=== PATIENT | male | born 1980 | race Caucasian/White ===

== ENCOUNTER 2024-01-17 11:45 | Emergency (ER) | payer OTHER, SELFPAY ==
[2024-01-17 11:58] VITALS: BP 141/82; PULSE 84; RESP 18; TEMP 36.9; O2SAT 95; BMI 38.4
--- NOTE | 2024-01-17 12:24 | CRLHL7_ITS ---
For Patients: As a result of the Century Cures Act, medical imaging exams and procedure reports are released immediately into your electronic medical record. You may view this report before your referring provider. If you have questions, please contact your health care provider. INDICATION: Cough. TECHNIQUE: Chest 2 views. COMPARISON: None. FINDINGS: Cardiovascular and mediastinum: Heart size and vasculature are normal in caliber and appearance. Lungs and pleural spaces: Left perihilar infiltrate. No sign of pleural effusion. No pneumothorax. Bones and soft tissues: No significant findings. IMPRESSION: Left perihilar infiltrate, possibly pneumonia in the appropriate clinical setting. Recommend short-term follow-up two-view radiographs after treatment to evaluate for resolution. Dictated by Donald Shaver MD @ 01/17/2024 12:57:50 PM (Electronically Signed)
[2024-01-17] MEDS: IPRAT-ALBUT 0.5-2.5 MG/3 ML NEB 1 NEB IH (12:28)
--- OUTSIDE RECORDS SUMMARY | 2024-01-17 13:04 | XMS_ITS ---
Author Organization [facility] Address [address] [place] [address] Care Team Providers Care Supervisor Hot Dip Tinning Name Role Phone Unavailable Unavailable Unavailable Surgery Details Not on file Complications Check Surgery Details section. Procedure Estimated Blood Loss Check Surgery Details section. Procedure Findings Check Surgery Details section. Procedure Specimens Taken Check Surgery Details section.
--- OUTSIDE RECORDS SUMMARY | 2024-01-17 13:04 | XMS_ITS | Clinical Summary ---
Author Organization [facility] Address [address] [place] [address] Care Team Providers Care Radio Repairer Domestic Name Role Phone None Reported, Pcp Primary Care Provider Unavail able Source Comments Patient records contain information from all sites at [facility]. For routine questions regarding patient records, call [phone] during business hours, M-F 8:00 AM - 5:00 PM Central Time. Record requests for emergency care only can be directed to [phone] at any time.[facility] Allergies Active Allergy Reactions Criticality Noted Date Comments Feathers Other (see comments) 03/18/2023 down Medications No known medications Social History Tobacco Use Types Packs/Day Years Used Date Smoking Tobacco: Never Passive Smoke Exposure: Never Smokeless Tobacco: Never [facility] Utilities Answer Date Recorded In the past 12 months has th e electric, gas, oil, or water company threatened to shut off services in your home? No 03/18/2023 Exercise Vital Sign Answer Date Recorde d On average, how many days pe r week do you engage in moderate to strenuous exercise (like a brisk walk)? 3 days 03/18/2023 On average, how many minutes do you engage in exercise at this level? 20 min 03/18/2023 Hunger Vital Sign Answer Date Recorded Within the past 12 months, y ou worried that your food would run out before you got the money to buy more. Never true 03/18/20 23 Within the past 12 months, t he food you bought just didn't last and you didn't have money to get more. Never true 03/18/2023 PRAPARE - Transportation Answer Date Re corded In the past 12 months, has l ack of transportation kept you from medical appointments or from getting medications? No 02/26 In the past 12 months, has l ack of transportation kept you from meetings, work, or from getting things needed for daily living? No 03/18/2023 Nutrition Answer Date Recorded Nutrition: EVOO Fat Source Unknown 03/18 On average, how many serving s of fruits and vegetables do you eat per day (serving size is equal to 1 cup or approximately the size of a tennis ball)? 3-5 03/18/2023 Dental Answer Date Recorded Dental: Regular Dentist Yes 03/18/20 Employment Answer Date Recorded Employment status Employed and actively working without restrictions 03/18/2023 Housing Stability Answer Date Recorded What is your living situation today? I have a [facility] place to live 03/18/2023 Sex and Gender Information Value Date Recorded Sex Assigned at Male 03/18/2023 9:10 AM EXECUTIVE DIRECTOR Legal Sex Male 7:48 AM CDT Gender Identity Male 03/18/2023 9:10 AM EXECUTIVE DIRECTOR Sexual Orientation Straight 03/18/2023 9: 10 AM EXECUTIVE DIRECTOR Last Filed Vital Signs Vital Sign Reading Time Taken Comments Blood Pressure 140/83 03/22/2023 1:03 PM EXECUTIVE DIRECTOR Pulse - - Temperature - - Respiratory Rate - - Oxygen Saturation - - Inhaled Oxygen Concentration - - Weight - - Height - - Body Mass Index - - Plan of Treatment Health Maintenance Due Date Last Done Comments HIV Screening 1980 Hepatitis C Screening 1980 DTaP,Tdap,and Td Vaccines (1 - Tdap) 2000 Hepatitis B Vaccines (1 of 3 - 19+ 3-dose series) 2000 Depression Screening (Annual PHQ-2) 03/28/2023 COVID-19 Vaccine (4 - 2023-2 5 season) 2023 04/17/2021, 07/31/2020, 07/08/2020 Influenza Vaccine (#1) 2023 Lipid (Cholesterol) Screening 03/22/2028 03/22/2023 HPV Vaccines Aged Out No longer eligi ble based on patient's age to complete this topic Pneumococcal vaccine (0-64 years) Aged Out No longer eligible b ased on patient's age to complete this topic Procedures Procedure Name Priority Date/Time Associated Diagnosis Comments LIPID PANEL, S Routine 03/22/2023 9:09 AM EXECUTIVE DIRECTOR Family History Heart Disease from Last 3 Months or Most Recently Relevant to Health Maintenance Results * (ABNORMAL) Lipid Panel (03/22/2023 9:09 AM EXECUTIVE DIRECTOR) Triglycerides 95 mg/dL 03/22/2023 12:42 PM EXECUTIVE DIRECTOR DTL Comment: ----REFERENCE VALUE---- Normal: <150 mg/dL Borderline High: 150-199 mg/dL High: 200-499 mg/dL Very High: > or =500 mg/dL Cholesterol, Total 167 mg/dL 2022 12:42 PM EXECUTIVE DIRECTOR DTL Comment: ----REFERENCE VALUE---- Desirable: < 200 mg/dL Borderline High: 200 - 239 mg/dL High: > or = 240 mg/dL Cholesterol, LDL, Calculated 110 mg/dL 03/22/2023 12:42 PM EXECUTIVE DIRECTOR DTL Comment: ----REFERENCE VALUE---- Desirable: <100 mg/dL Above Desirable: 100-129 mg/dL Borderline High: 130-159 mg/dL High: 160-189 mg/dL Very High: >=190 mg/dL ----ADDITIONAL INFORMATION---- LDL cholesterol calculated using the English/NIH equation. Cholesterol, HDL, S 39(L) >=40 mg/dL 03/22/2023 12:42 PM EXECUTIVE DIRECTOR DTL Cholesterol, Non-HDL, Calculated 128 mg/dL 03/22/2023 12:42 PM EXECUTIVE DIRECTOR DTL Comment: ----REFERENCE VALUE---- Desirable: <130 mg/dL Above Desirable: 130-159 mg/dL Borderline High: 160-189 mg/dL High: 190-219 mg/dL Very High: > or =220 mg/dL Fasting (8 HR or more) Unknown 03/22/2023 12:05 PM EXECUTIVE DIRECTOR DTL Blood (Blood, Venous) 03/22/2023 9:09 AM EXECUTIVE DIRECTOR 03/22/2023 12:06 PM EXECUTIVE DIRECTOR us Bassem Mcelroy M.D. LAB BLOOD ADD-ON Final Res ult [facility] [address] [place] [address], [place] DTL [facility] [address] [place] [address] from Last 3 Months or Most Recently Relevant to Health Maintenance Insurance [facility] Care Teams Radio Repairer Domestic Relationship Specialty Start Date End Date None Reported, Pcp PCP - General Family Medicine 03/18/23
--- OUTSIDE RECORDS SUMMARY | 2024-01-17 13:04 | XMS_ITS | Referral Summary ---
Author Organization [facility] Address [address] [place] [address] Care Team Providers Care Streetcar Repairer Name Role Phone None Reported, Pcp Primary Care Provider Unavail able Source Comments Patient records contain information from all sites at [facility]. For routine questions regarding patient records, call [phone] during business hours, M-F 8:00 AM - 5:00 PM Central Time. Record requests for emergency care only can be directed to [phone] at any time.[facility] Allergies Active Allergy Reactions Criticality Noted Date Comments Feathers Other (see comments) 03/18/2023 down Medications No known medications Social History Tobacco Use Types Packs/Day Years Used Date Smoking Tobacco: Never Passive Smoke Exposure: Never Smokeless Tobacco: Never [facility] Utilities Answer Date Recorded In the past [...] your living situation today? I have a [facility] place to live 03/18/2023 Sex and Gender Information Value Date Recorded Sex Assigned at Male 03/18/2023 9:10 AM CLINICAL DOCUMENTATION IMPROVEMENT SPECIALIST Legal Sex Male 7:48 AM CDT Gender Identity Male 03/18/2023 9:10 AM CLINICAL DOCUMENTATION IMPROVEMENT SPECIALIST Sexual Orientation Straight 03/18/2023 9: 10 AM CLINICAL DOCUMENTATION IMPROVEMENT SPECIALIST Last Filed Vital Signs Vital Sign Reading Time Taken Comments Blood Pressure 140/83 03/22/2023 1:03 PM CLINICAL DOCUMENTATION IMPROVEMENT SPECIALIST Pulse - - Temperature - - Respiratory Rate - - Oxygen Saturation - - Inhaled Oxygen Concentration - - Weight - - Height - - Body Mass Index - - Plan of Treatment Not on file Procedures Procedure Name Priority Date/Time Associated Diagnosis Comments LIPID PANEL, S Routine 03/22/2023 9:09 AM CLINICAL DOCUMENTATION IMPROVEMENT SPECIALIST Family History Heart Disease from Last 3 Months or Most Recently Relevant to Health Maintenance Results * (ABNORMAL) Lipid Panel (03/22/2023 9:09 AM CLINICAL DOCUMENTATION IMPROVEMENT SPECIALIST) Triglycerides 95 mg/dL 03/22/2023 12:42 PM CLINICAL DOCUMENTATION IMPROVEMENT SPECIALIST DTL Comment: ----REFERENCE VALUE---- Normal: <150 mg/dL Borderline High: 150-199 mg/dL High: 200-499 mg/dL Very High: > or =500 mg/dL Cholesterol, Total 167 mg/dL 2022 12:42 PM CLINICAL DOCUMENTATION IMPROVEMENT SPECIALIST DTL Comment: ----REFERENCE VALUE---- Desirable: < 200 mg/dL Borderline High: 200 - 239 mg/dL High: > or = 240 mg/dL Cholesterol, LDL, Calculated 110 mg/dL 03/22/2023 12:42 PM CLINICAL DOCUMENTATION IMPROVEMENT SPECIALIST DTL Comment: ----REFERENCE VALUE---- Desirable: <100 mg/dL Above Desirable: 100-129 mg/dL Borderline High: 130-159 mg/dL High: 160-189 mg/dL Very High: >=190 mg/dL ----ADDITIONAL INFORMATION---- LDL cholesterol calculated using the English/NIH equation. Cholesterol, HDL, S 39(L) >=40 mg/dL 03/22/2023 12:42 PM CLINICAL DOCUMENTATION IMPROVEMENT SPECIALIST DTL Cholesterol, Non-HDL, Calculated 128 mg/dL 03/22/2023 12:42 PM CLINICAL DOCUMENTATION IMPROVEMENT SPECIALIST DTL Comment: ----REFERENCE VALUE---- Desirable: <130 mg/dL Above Desirable: 130-159 mg/dL Borderline High: 160-189 mg/dL High: 190-219 mg/dL Very High: > or =220 mg/dL Fasting (8 HR or more) Unknown 03/22/2023 12:05 PM CLINICAL DOCUMENTATION IMPROVEMENT SPECIALIST DTL Blood (Blood, Venous) 03/22/2023 9:09 AM CLINICAL DOCUMENTATION IMPROVEMENT SPECIALIST 03/22/2023 12:06 PM CLINICAL DOCUMENTATION IMPROVEMENT SPECIALIST Bassem Mcelroy M.D. LAB BLOOD ADD-ON Final Res ult [facility] [address] [place] [address], [facility] [address] [place] [address] from Last 3 Months or Most Recently Relevant to Health Maintenance Insurance [employer] Care Teams Streetcar Repairer Relationship Specialty Start Date End Date None Reported, Pcp PCP - General Family Medicine 03/18/23
--- NOTE | 2024-01-17 13:14 | ED_ITS ---
HPI - General Adult General Date Seen: 01/17/24 Chief complaint: Cough Stated complaint: Coughing, painful lungs, wheezing, temp Time Seen by Provider: 01/17/24 12:18 Source: patient Mode of arrival: ambulatory Limitations: no limitations History of Present Illness HPI narrative: Patient is a 43-year-old male who comes in for re-evaluation of respiratory symptoms. He reports he has been sick for about 10-14 days initially with congestion runny nose sore throat and cough. Other symptoms have generally improved but he continues to have a cough, he has felt kind of wheezy short of breath. He has had tactile fevers, some sweats at home. No vomiting or diarrhea. He does not smoke, denies prior history of asthma, notes no other medical history. He does say he did a COVID test at home which was negative. Related Data Previous Rx's ?Medication ?Instructions ?Recorded benzonatate 200 mg capsule 200 mg PO BID-TID PRN cough #30 01/10/24 caps Allergies Allergy/AdvReac Type Severity Reaction Status Date / Time No Known Drug Allergies Allergy Verified 01/10/24 09:09 Review of Systems Status of ROS: Reports: 10 or more systems reviewed and unremarkable except as noted in History and below [facility] Medical History Hair thinning ?L65.9 - Nonscarring hair loss, unspecified (ICD-10) Social History Smoking Status: Never smoker How often do you have a drink containing alcohol: never How often do you have six or more drinks on one occasion: Never AUDIT-C Alcohol total score: 0 Non-prescribed substance use: denies use Exam Narrative: Exam Narrative: Vital signs as noted above. In general, an alert, well-appearing patient. Breathing easily. Head: Normocephalic, atraumatic. Eyes: Pupils are equal reactive. Extraocular movements are full. Conjunctivae are normal. ENT: Mucous membranes are moist. Throat is normal. TMs normal bilaterally. Neck: Supple without lymphadenopathy. Heart: Regular rate and rhythm. No murmur or rub. Lungs: Bilateral rales and rhonchi as well as scattered wheezes. No increased work of breathing. Extremities: Well perfused. No edema. No calf tenderness. Pulses intact. Neurologic: Patient is alert and oriented to person and place. Speech is fluent. Face is symmetric. Moves all extremities equally. Affect: Normal. Skin: Warm and dry. Well perfused. Const: Vital Signs, click to edit/add: Vital Signs - 24 hr 01/17/24 11:58 Temperature 98.4 F Pulse Rate [Right Pulse Oximeter] 84 Respiratory Rate 18 Blood Pressure [Ri ght Upper Arm] 141/82 H Pulse Oximetry 95 Oxygen Delivery Me thod Room Air Documenting provider has reviewed patient's vital signs: yes Course Course ED Course: Patient had a DuoNeb here, wheezes or resolved although he continues to have rales and rhonchi. He does feel improved from a respiratory standpoint. Chest x-ray by my review shows a consolidated infiltrate on the left. Final radiology read as below. Overall presentation is consistent with pneumonia. Amoxicillin and azithromycin prescribed from [facility] as well as an albuterol inhaler. Discussed with him that symptoms could be viral or bacterial. Regardless he should be feeling improved within a week and if not needs to be seen again. Return any time for significant worsening. Vital Signs Vital signs: Initial Vital Signs Temperature 98.4 F 01/17/24 11:58 Temperature Source Temporal Artery Scan 01/17/24 11:58 Pulse Rate 84 01/17/24 11:58 Respiratory Rate 18 01/17/24 11:58 Blood Pressure 141/82 H 01/17/24 11:58 Blood Pressure Mean 101 01/17/24 11:58 Blood Pressure Position Sitting 01/17/24 11:58 Pulse Oximetry 95 01/17/24 11:58 Oxygen Delivery Method Room Air 01/17/24 11:58 Vital Signs Temperature 98.4 F 01/17/24 11:58 Pulse Rate 84 01/17/24 11:58 Respiratory Rate 18 01/17/24 11:58 Blood Pressure 141/82 H 01/17/24 11:58 Pulse Oximetry 95 01/17/24 11:58 Oxygen Delivery Method Room Air 01/17/24 11:58 Temperature 98.4 F 01/17/24 11:58 Pulse Rate 84 01/17/24 11:58 Respiratory Rate 18 01/17/24 11:58 Blood Pressure 141/82 H 01/17/24 11:58 Pulse Oximetry 95 01/17/24 11:58 Oxygen Delivery Method Room Air 01/17/24 11:58 Medications Administered Medications: Discontinued Medications Generic Name Dose Route Start Last Admin Trade Name Freq PRN Reason Stop Dose Admin Albuterol/Ipratropium 1 neb 01/17/24 12:24 01/17/24 12:28 Iprat-Albut 0.5-2.5 Mg/3 Ml Neb IH 01/17/24 12:25 1 neb ONCE ONE Administration Medical Decision Making Imaging Data Chest x-ray: Radiologist's impression: Patient: MATEO SHEPHERD Facility: [facility] Site . Site : 1980 Study: XRay-Chest 2 VIEW-01/17/2024 12:52:51 PM Ordering Physician: Abel Fernandez Final Report: INDICATION: Cough. TECHNIQUE: Chest 2 views. COMPARISON: None. FINDINGS: Cardiovascular and mediastinum: Heart size and vasculature are normal in caliber and appearance. Lungs and pleural spaces: Left perihilar infiltrate. No sign of pleural effusi on. No pneumothorax. Bones and soft tissues: No significant findings. IMPRESSION: Left perihilar infiltrate, possibly pneumonia in the appropriate clinical setting. Recommend short-term follow-up two-view radiographs after treatment to evaluate for resolution. Dictated by Donald Shaver MD @ 01/17/2024 12:57:50 PM Discharge Plan Discharge Clinical Impression: Pneumonia Patient Disposition: Home, Self-Care Condition: Improved Instructions: Community Acquired Pneumonia (ED) Additional Instructions: Antibiotics as prescribed. Albuterol inhaler as needed for wheezing or shortness of breath or cough. You should feel better within 3-7 days depending on whether this is a bacterial pneumonia or viral. If not, you should be seen again. Return at any time for significant worsening. Prescriptions: No Action benzonatate 200 mg capsule 200 mg PO BID-TID PRN (Reason: cough) Qty: 30 0RF Follow Up/Referrals: Provider,Not a Local [Primary Care Provider] - Stand Alone Forms: [email or web address] Info Instructions
== END 2024-01-17 13:13 | disposition home or self-care (01) ==
PROVIDERS: Emergency Provider Emergency Medicine
DX: J18.9 Pneumonia, unspecified organism (principal)
CPT/HCPCS: 71046; 99283; 99284